=== PATIENT | female | born 1960 | race Caucasian/White ===

== ENCOUNTER → 2020-05-05 | Outpatient (CLI) | payer OTHER ==
[2014-08-18 08:30] VITALS: BP 141/69
[~2020-05-05] MED LIST: CALC-244 PO; GLUC1TAB64 PO; IBUP-1060 PO; MULT-18 PO; MV C PO; OMEG-33 PO; VITA400C6 PO; [UNRECOGNIZED DRUG - CODE] PO
--- NOTE | 2020-05-05 11:56 | EEG ---
DATE OF SERVICE: 05/05/2020 ELECTROENCEPHALOGRAM REPORT EEG NUMBER: [id number] OBJECTIVE: The patient is a 59-year-old female with history of childhood seizures, who is having unexplained falls. DESCRIPTION: This is a digital study. Electrodes are placed according to the international 10-20 system. Bipolar and referential montages are available. Activation procedures typically include hyperventilation and intermittent photic stimulation. INTERPRETATION: The waking background consists of 9-10 Hz, 50-100 microvolt activity, symmetrically distributed over parietooccipital regions and reactive to eye opening. Hyperventilation and intermittent photic stimulation are noncontributory. Stage 1 sleep is achieved with normal electroencephalogram patterns. IMPRESSION: This electroencephalogram with the patient awake and asleep is within normal limits. There is no focal, paroxysmal, or epileptiform activity. Thank you for letting us help with the patient's care. MARK PONCE MD DR: SERGIO/luca JOB#: [id number] / [id number]
== END | disposition home or self-care (01) ==
LOC: RT 09:13
PROVIDERS: ATTEND Psychiatry & Neurology Neurology with Special Qualifications in Child Neurology
DX: R06.4 Hyperventilation (principal); Z86.69 Personal history of other diseases of the nervous system and sense organs
CPT/HCPCS: 95816